=== PATIENT | male | born 1985 | race Caucasian/White ===

== ENCOUNTER 2017-01-05 11:05 | Emergency (ER) | payer OTHER ==
--- NOTE | 2017-01-05 12:48 | REP ---
SACRUM AND COCCYX SERIES: THREE VIEWS. HISTORY: Trauma. FINDINGS: AP, tube angled, and lateral views of the sacrum and coccyx show no evidence of fracture, displacement, or presacral swelling. SI joints and symphysis pubis are intact. IMPRESSION: No fracture seen. Signed by Blade Cason MD 01/05/2017 02:34 P
--- NOTE | 2017-01-05 12:54 | EDDOCDS ---
Nurse's Notes [facility] Name: Pa Jurado Age: 31 yrs Sex: Male : 1985 Arrival Date: 01/05/2017 Time: 11:05 Bed PR [facility] Diagnosis: Contusion of lower back and pelvis Presentation: 01/05 11:14 Presenting complaint: Patient states: states that he fell on his tailbone 1 week ago, ml6 c/o pain when sitting. Adult Sepsis Screening: The patient does not have new or worsening altered mentation. Patient's respiratory rate is less than 22. Systolic blood pressure is greater than 100. Patient has a qSOFA score of 0- Negative Sepsis Screen. Suicide/Homicide risk assessment- the patient denies having any suicidal and/or homicidal ideations and does not present with any other emotional, behavioral or mental health complaints. 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 Transition of care: patient was not received from another setting of care. 11:14 Acuity: SANTI Level 4 ml6 11:14 Method Of Arrival: Walkin/Carried/Asstd ml6 Triage Assessment: 11:15 General: Appears in no apparent distress, Behavior is appropriate for age, cooperative. ml6 Pain: Location: buttocks Pain currently is 5 out of 10 on a pain scale. Pain does not radiate. 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 Aggravated by increased activity. HIV screening NA for this visit Offered previously. Cardiovascular: No deficits noted. Capillary refill < 3 seconds is brisk in bilateral fingers toes Heart tones S1 S2 present. Respiratory: No deficits noted. Airway is patent Respiratory effort is even, unlabored, Respiratory pattern is regular, symmetrical, Breath sounds are clear bilaterally. GI: No deficits noted. Musculoskeletal: Circulation, motion, and sensation intact Capillary refill < 3 seconds is brisk in bilateral fingers toes Range of motion intact in all extremities. No deformity noted Swelling absent Signs and Symptoms of Compartment Syndrome: no signs of compartment syndrome. Historical: - Allergies: no known allergies; - Home Meds: 1. Motrin 800 mg Oral tab 1 tab 3 times per day (Last dose: 01/05/2017 06:00) - PMHx: none; - PSHx: left arm ORIF; - Social history: Smoking status: Patient states was never smoker of tobacco. No barriers to communication noted, Speaks appropriately for age. - Family history: Not pertinent. - : The pt / caregiver states he / she is not on anticoagulants. Home medication list is obtained from the patient. - Exposure Risk Screening:: None identified. Screenin:51 Screening information is obtained from the patient. Fall risk: No risks identified. js13 Assistance ADL's: requires no assistance with activities of daily living. Abuse/DV Screen: The patient / caregiver reports he/she is: not in a situation that causes fear, pain or injury. Nutritional screening: No deficits noted. Advance Directives: There is no active DNR order. home support is adequate. Assessment: 12:51 General: Appears in no apparent distress, Behavior is appropriate for age, cooperative. js13 Pain: Location: buttocks Pain currently is 2 out of 10 on a pain scale. Neurological: Level of Consciousness is awake, alert. Respiratory: Airway is patent Respiratory effort is even, unlabored, Respiratory pattern is regular, symmetrical. Derm: Skin is pink, warm & dry. Vital Signs: 11:07 BP 112 / 72; Pulse 61; Resp 18; Temp 97.6(O); Pulse Ox 99% on R/A; Weight 94.8 kg (R); ct3 Height 71 in. (180.34 cm) (R); Pain 2/10; 12:51 BP 128 / 82; Pulse 78; Resp 18; Temp 97.3(T); Pulse Ox 98% on R/A; Pain 2/10; ar3 11:07 Body Mass Index 29.15 (94.80 kg, 180.34 cm) ct3 Vitals: 11:07 Log In Time: January 05, 2017 at 11:05. ct3 ED Course: 11:07 Patient visited by Macy Wall PCA. ct3 11:07 [facility]. ct3 11:07 Patient moved to Waiting ct3 11:08 Patient moved to Pre RCE ct3 11:14 Triage Initiated ml6 11:43 Patient moved to Triage 1 ar3 11:45 Kvng Hernandez PA-C [facility]. cc10 11:45 Jennifer Edge MD is Attending Physician. cc10 11:49 Patient visited by Kvng Hernandez PA-C. cc10 11:49 Patient visited by Kvng Hernandez PA-C. cc10 11:53 Patient moved to TR2 ar3 12:36 Patient moved to PR1 / 25 ml6 12:46 [facility] Referral Physician. cc10 12:51 Patient visited by Aylin Gallegos, KAREN. ar3 12:51 The patient / caregiver is instructed regarding the plan of care and ED course. js13 12:51 No IV's were initiated during this patient's visit. No procedures done that require js13 assistance. Order Results: There are currently no results for this order. Outcome: 12:46 Discharge ordered by Provider. cc10 12:51 Discharge Assessment: Patient awake, alert and oriented x 3. No cognitive and/or js13 functional deficits noted. Patient verbalized understanding of disposition instructions. patient administered narcotics - no. The following High Risk Discharge criteria are identified: None. Discharged to home ambulatory. Condition: stable. Discharge instructions given to patient, Instructed on discharge instructions, follow up and referral plans. medication usage, Demonstrated understanding of instructions, medications, Pt was receptive of discharge instructions/ teaching. Prescriptions given X 1. No special radiology studies were completed. Property :Personal belongings accompany Pt. 12:52 Patient left the ED. js13 Signatures: Kyle Burrows, RN RN ml6 Aylin Gallegos, CREDIT INVESTIGATOR CREDIT INVESTIGATOR ar3 Macy Wall, CREDIT INVESTIGATOR CREDIT INVESTIGATOR ct3 Yesica Gongora RN RN js13 Kvng Hernandez PA-C PA-C [facility] MTDD
--- NOTE | 2017-01-05 12:54 | EDDOCDS ---
Physician Documentation [facility] Name: Pa Jurado Age: 31 yrs Sex: Male : 1985 Arrival Date: 01/05/2017 Time: 11:05 Bed PR / [facility] Disposition: 01/05/17 12:46 Discharged to Home/Self Care. Impression: Contusion of lower back and pelvis. - Condition is Stable. - Discharge Instructions: Contusion. - Prescriptions for Hydrocodone- Acetaminophen 5-325 mg Oral Tablet - take 1 tablet by ORAL route every 6 hours As needed MDD: 4 tabs; 20 tablet. - Medication Reconciliation form. - Follow [facility]: [facility]; When: Call to arrange an appointment; Reason: Wound/Symptom Recheck, Recheck today's complaints, Continuance of care. - Problem is an ongoing problem. - Symptoms are unchanged. Historical: - Allergies: no known allergies; - Home Meds: 1. Motrin 800 mg Oral tab 1 tab 3 times per day (Last dose: 01/05/2017 06:00) - PMHx: none; - PSHx: left arm ORIF; - Social history: Smoking status: Patient states was never smoker of tobacco. No barriers to communication noted, Speaks appropriately for age. - Family history: Not pertinent. - : The pt / caregiver states he / she is not on anticoagulants. Home medication list is obtained from the patient. - Exposure Risk Screening:: None identified. Vital Signs: 01/05 11:07 BP 112 / 72; Pulse 61; Resp 18; Temp 97.6(O); Pulse Ox 99% on R/A; Weight 94.8 kg / 209 ct3 lbs (R); Height 71 in. (180.34 cm) (R); Pain 2/10; 12:51 BP 128 / 82; Pulse 78; Resp 18; Temp 97.3(T); Pulse Ox 98% on R/A; Pain 2/10; ar3 11:07 Body Mass Index 29.15 (94.80 kg, 180.34 cm) ct3 MDM: 11:53 Sacrum/coccyx Ordered. EDMS Signatures: Dispatcher [employer] EDMS Kyle Burrows RN RN ml6 Yesica Gongora RN RN js13 Jordy Hernandezn, PA-C PA-C cc10 MTDD
--- NOTE | 2017-01-07 13:53 | EDDOCDS ---
Physician Documentation [facility] Name: Pa Jurado Age: 31 yrs Sex: Male : 1985 Arrival Date: 01/05/2017 Time: 11:05 Bed PR / [facility] Disposition: 01/05/17 12:46 Discharged to Home/Self Care. Impression: Contusion of lower back and pelvis. - Condition is Stable. - Discharge Instructions: Contusion. - Prescriptions for Hydrocodone- Acetaminophen 5-325 mg Oral Tablet - take 1 tablet by ORAL route every 6 hours As needed MDD: 4 tabs; 20 tablet. - Medication Reconciliation form. - [facility]; When: Call to arrange an appointment; Reason: Wound/Symptom Recheck, Recheck today's complaints, Continuance of care. - Problem is an ongoing problem. - Symptoms are unchanged. Historical: - Allergies: no known allergies; - Home Meds: 1. Motrin 800 mg Oral tab 1 tab 3 times per day (Last dose: 01/05/2017 06:00) - PMHx: none; - PSHx: left arm ORIF; - Social history: Smoking status: Patient states was never smoker of tobacco. No barriers to communication noted, Speaks appropriately for age. - Family history: Not pertinent. - : The pt / caregiver states he / she is not on anticoagulants. Home medication list is obtained from the patient. - Exposure Risk Screening:: None identified. Vital Signs: 01/05 11:07 BP 112 / 72; Pulse 61; Resp 18; Temp 97.6(O); Pulse Ox 99% on R/A; Weight 94.8 kg / 209 ct3 lbs (R); Height 71 in. (180.34 cm) (R); Pain 2/10; 12:51 BP 128 / 82; Pulse 78; Resp 18; Temp 97.3(T); Pulse Ox 98% on R/A; Pain 2/10; ar3 11:07 Body Mass Index 29.15 (94.80 kg, 180.34 cm) ct3 MDM: 11:53 Sacrum/coccyx Ordered. EDMS 13:06 Financial registration complete. az 15:09 [facility] [place] was scanned into [employer] and attached to record. az 16:12 T-Sheet-- Draft Copy was scanned into [employer] and attached to record. klr Signatures: Dispatcher [employer] Kyle Payne, RN RN ml6 Yesica GongoraRN RN js13 Kvng Hernandez, PA-C PA-C cc10 Emi Ochoa Kathie klalli The chart was reviewed and I authenticate all verbal orders and agree with the evaluation and treatment provided.Attachments: 15:09 [facility] [place] az 16:12 T-Sheet-- Draft Copy klr Chart Complete MTDD
--- NOTE | 2017-01-07 13:53 | EDDOCDS ---
Nurse's Notes [facility] Name: Pa Jurado Age: 31 yrs Sex: Male : 1985 Arrival Date: 01/05/2017 Time: 11:05 Bed PR [facility] Diagnosis: Contusion of lower back and pelvis Presentation: 01/05 11:14 Presenting complaint: Patient states: states that he fell on his tailbone 1 week ago, ml6 c/o pain when sitting. Adult Sepsis Screening: The patient does not have new or worsening altered mentation. Patient's respiratory rate is less than 22. Systolic blood pressure is greater than 100. Patient has a qSOFA score of 0- Negative Sepsis Screen. Suicide/Homicide risk assessment- the patient denies having any suicidal and/or homicidal ideations and does not present with any other emotional, behavioral or mental health complaints. Status: Patient is not a director clinical information services or dependent. Transition of care: patient was not received from another setting of care. 11:14 Acuity: SANTI Level 4 ml6 11:14 Method Of Arrival: Walkin/Carried/Asstd ml6 Triage Assessment: 11:15 General: Appears in no apparent distress, Behavior is appropriate for age, cooperative. ml6 Pain: Location: buttocks Pain currently is 5 out of 10 on a pain scale. Pain does not radiate. 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 Aggravated by increased activity. HIV screening NA for this visit Offered previously. Cardiovascular: No deficits noted. Capillary refill < 3 seconds is brisk in bilateral fingers toes Heart tones S1 S2 present. Respiratory: No deficits noted. Airway is patent Respiratory effort is even, unlabored, Respiratory pattern is regular, symmetrical, Breath sounds are clear bilaterally. GI: No deficits noted. Musculoskeletal: Circulation, motion, and sensation intact Capillary refill < 3 seconds is brisk in bilateral fingers toes Range of motion intact in all extremities. No deformity noted Swelling absent Signs and Symptoms of Compartment Syndrome: no signs of compartment syndrome. Historical: - Allergies: no known allergies; - Home Meds: 1. Motrin 800 mg Oral tab 1 tab 3 times per day (Last dose: 01/05/2017 06:00) - PMHx: none; - PSHx: left arm ORIF; - Social history: Smoking status: Patient states was never smoker of tobacco. No barriers to communication noted, Speaks appropriately for age. - Family history: Not pertinent. - : The pt / caregiver states he / she is not on anticoagulants. Home medication list is obtained from the patient. - Exposure Risk Screening:: None identified. Screenin:51 Screening information is obtained from the patient. Fall risk: No risks identified. js13 Assistance ADL's: requires no assistance with activities of daily living. Abuse/DV Screen: The patient / caregiver reports he/she is: not in a situation that causes fear, pain or injury. Nutritional screening: No deficits noted. Advance Directives: There is no active DNR order. home support is adequate. Assessment: 12:51 General: Appears in no apparent distress, Behavior is appropriate for age, cooperative. js13 Pain: Location: buttocks Pain currently is 2 out of 10 on a pain scale. Neurological: Level of Consciousness is awake, alert. Respiratory: Airway is patent Respiratory effort is even, unlabored, Respiratory pattern is regular, symmetrical. Derm: Skin is pink, warm & dry. Vital Signs: 11:07 BP 112 / 72; Pulse 61; Resp 18; Temp 97.6(O); Pulse Ox 99% on R/A; Weight 94.8 kg (R); ct3 Height 71 in. (180.34 cm) (R); Pain 2/10; 12:51 BP 128 / 82; Pulse 78; Resp 18; Temp 97.3(T); Pulse Ox 98% on R/A; Pain 2/10; ar3 11:07 Body Mass Index 29.15 (94.80 kg, 180.34 cm) ct3 Vitals: 11:07 Log In Time: January 05, 2017 at 11:05. ct3 ED Course: 11:07 Patient visited by Macy Wall PCA. ct3 11:07 [facility]. ct3 11:07 Patient moved to Waiting ct3 11:08 Patient moved to Pre RCE ct3 11:14 Triage Initiated ml6 11:43 Patient moved to Triage 1 ar3 11:45 Kvng Hernandez PA-C [facility]. cc10 11:45 Jennifer Edge MD is Attending Physician. cc10 11:49 Patient visited by Kvng Hernandez PA-C. cc10 11:49 Patient visited by Kvng Hernandez PA-C. cc10 11:53 Patient moved to TR2 ar3 12:36 Patient moved to PR1 / 25 ml6 12:46 [facility] Referral Physician. cc10 12:51 Patient visited by Aylin Gallegos PCA. ar3 12:51 The patient / caregiver is instructed regarding the plan of care and ED course. js13 12:51 No IV's were initiated during this patient's visit. No procedures done that require js13 assistance. 12:55 Patient name changed from Pa\S\\S\Jurado\S\ to Pa\S\Sundar\S\Jurado. EDMS 13:19 Sacrum/coccyx Returned. EDMS 15:09 [facility] Payment Agreement was scanned into [employer] and attached to record. az 16:12 T-Sheet-- Draft Copy was scanned into [employer] and attached to record. klr Order Results: Radiology Order: Sacrum/coccyx Test: Sacrum/coccyx REASON FOR EXAMINATION: Trauma; SACRUM AND COCCYX SERIES: THREE VIEWS.; ; HISTORY: Trauma.; ; FINDINGS: AP, tube angled, and lateral views of the sacrum and coccyx show no; evidence of fracture, displacement, or presacral swelling. SI joints and; symphysis pubis are intact.; ; IMPRESSION:; ; No fracture seen.; ; ; Signed by; Blade Cason MD 01/05/2017 02:34 P; Outcome: 12:46 Discharge ordered by Provider. cc10 12:51 Discharge Assessment: Patient awake, alert and oriented x 3. No cognitive and/or js13 functional deficits noted. Patient verbalized understanding of disposition instructions. patient administered narcotics - no. The following High Risk Discharge criteria are identified: None. Discharged to home ambulatory. Condition: stable. Discharge instructions given to patient, Instructed on discharge instructions, follow up and referral plans. medication usage, Demonstrated understanding of instructions, medications, Pt was receptive of discharge instructions/ teaching. Prescriptions given X 1. No special radiology studies were completed. Property :Personal belongings accompany Pt. 12:52 Patient left the ED. js13 Signatures: Dispatcher [employer] EDKyle Ramos RN RN ml6 Aylin Gallegos PCA DISTRICT MANAGER POSTAL SERVICE ar3 Macy Wall, DISTRICT MANAGER POSTAL SERVICE DISTRICT MANAGER POSTAL SERVICE ct3 Yesica Gongora,RN RN js13 Kvng Hernandez, DERRICKC PASawC cc10 Emi Ochoa Kathie klr Chart Complete MTDD
--- NOTE | 2017-01-07 13:53 | EDDOCDS ---
Physician Documentation [facility] Name: Pa Jurado Age: 31 yrs Sex: Male : 1985 Arrival Date: 01/05/2017 Time: 11:05 Bed PR / [facility] Disposition: 01/05/17 12:46 Discharged to Home/Self Care. Impression: Contusion of lower back and pelvis. - Condition is Stable. - Discharge Instructions: Contusion. - Prescriptions for Hydrocodone- Acetaminophen 5-325 mg Oral Tablet - take 1 tablet by ORAL route every 6 hours As needed MDD: 4 tabs; 20 tablet. - Medication Reconciliation form. - [facility]: [facility]; When: Call to arrange an appointment; Reason: Wound/Symptom Recheck, Recheck today's complaints, Continuance of care. - Problem is an ongoing problem. - Symptoms are unchanged. Historical: - Allergies: no known allergies; - Home Meds: 1. Motrin 800 mg Oral tab 1 tab 3 times per day (Last dose: 01/05/2017 06:00) - PMHx: none; - PSHx: left arm ORIF; - Social history: Smoking status: Patient states was never smoker of tobacco. No barriers to communication noted, Speaks appropriately for age. - Family history: Not pertinent. - : The pt / caregiver states he / she is not on anticoagulants. Home medication list is obtained from the patient. - Exposure Risk Screening:: None identified. Vital Signs: 01/05 11:07 BP 112 / 72; Pulse 61; Resp 18; Temp 97.6(O); Pulse Ox 99% on R/A; Weight 94.8 kg / 209 ct3 lbs (R); Height 71 in. (180.34 cm) (R); Pain 2/10; 12:51 BP 128 / 82; Pulse 78; Resp 18; Temp 97.3(T); Pulse Ox 98% on R/A; Pain 2/10; ar3 11:07 Body Mass Index 29.15 (94.80 kg, 180.34 cm) ct3 MDM: 11:53 Sacrum/coccyx Ordered. EDMS 13:06 Financial registration complete. az 15:09 [facility] [place] Payment Agreement was scanned into [employer] and attached to record. az 16:12 T-Sheet-- Draft Copy was scanned into [employer] and attached to record. klr Signatures: Dispatcher [employer] Kyle Payne, RN RN ml6 Yesica GongoraRN RN js13 Kvng Hernandez, PA-C PA-C cc10 Emi Ochoa Kathie klalli The chart was reviewed and I authenticate all verbal orders and agree with the evaluation and treatment provided.Attachments: 15:09 [facility] [place] Payment Agreement az 16:12 T-Sheet-- Draft Copy klr Chart Complete MTDD
== END 2017-01-05 12:52 | disposition home or self-care (01) ==
LOC: M ED 11:05
DX: S30.0XXA Contusion of lower back and pelvis, initial encounter (principal); W18.30XA Fall on same level, unspecified, initial encounter; Y92.018 Other place in single-family (private) house as the place of occurrence of the external cause; Y93.89 Activity, other specified; Y99.8 Other external cause status; G89.29 Other chronic pain; M54.9 Dorsalgia, unspecified